=== PATIENT | female | born 1950 | race Caucasian/White ===

== ENCOUNTER 2019-01-10 12:30 | Day surgery (SDC) | payer MEDICARE, MEDICAID ==
[~2019-01-10] VITALS: Ht 157.5 cm; Wt 80.9 kg
[~2019-01-10 12:30] MED LIST: ALBU18HF2 IH; BUTA-281 PO; LORA1TAB PO; SPIR25TA5 PO; UMEC62.5
[2019-01-10 12:41] VITALS: BP 155/70
[2019-01-10] MEDS ORDERED: SIMV10TA6 PO (12:53)
[2019-01-10] MEDS ORDERED: LIDOcaine Viscous 15ml cup ONE (12:57)
[2019-01-10] MEDS ORDERED: MIDAZolam 5mg/5ml vial ONE (12:57)
[2019-01-10] MEDS ORDERED: fentaNYL/PF 50MCG/1 ML 2ML syringe ONE (12:57)
[2019-01-10 13:26] VITALS: BP 108/53
[2019-01-10 13:36] VITALS: BP 119/53
[2019-01-10 13:46] VITALS: BP 116/49
[2019-01-10 13:56] VITALS: BP 132/74
== END 2019-01-10 14:15 | disposition home or self-care (01) ==
LOC: GI LAB 12:30
PROVIDERS: ATTEND Internal Medicine Gastroenterology
DX: I85.00 Esophageal varices without bleeding (principal); K22.8 Other specified diseases of esophagus; K20.8 Other esophagitis; Z98.890 Other specified postprocedural states
CPT/HCPCS: 43239; G0500; J2250; J3010; J7040; 88305; 99152; A4620